=== PATIENT | female | born 1960 | race Caucasian/White ===

== ENCOUNTER 2022-01-13 16:17 | Inpatient (IN) | payer OTHER, SELFPAY ==
--- NOTE | ~2022-01-13 | XR_ITS ---
EXAMINATION: XR HAND, RIGHT CLINICAL INFORMATION: Right hand injury COMPARISON: None TECHNIQUE: PA, lateral, and oblique views of the right hand. FINDINGS: Bones are normal anatomic alignment with no acute fracture or dislocation. Degenerative changes are seen with osteophyte formation more so in the region of the AP and PIP joint spaces. No acute underlying fracture or dislocation appreciated. XR/XR hand RT 2V IMPRESSION: No acute bony abnormality with chronic appearing degenerative changes.
[2022-01-13 16:28] VITALS: BP 124/91; PULSE 69; RESP 18; TEMP 36.8; O2SAT 99; BMI 27.4
--- NOTE | 2022-01-13 17:25 | ED_ITS ---
HPI - Extremity Problem General Chief complaint: Extremity Injury, Upper Stated complaint: Cat Scratch R Hand Time Seen by Provider: 01/13/22 17:25 Source: patient Mode of arrival: ambulatory Limitations: no limitations History of Present Illness HPI Narrative: Patient is a 61 year old female presenting to the emergency department today with right hand pain. Patient states that on Thursday she was bitten and scratched by her cat and ever since then she has had significant swelling and pain to her right hand. Patient denies any numbness, tingling, dizziness, lightheadedness, abdominal pain, nausea, vomiting, fever, chills, blurry vision, double vision, loss of vision, chest pain, difficulty breathing, shortness of breath, back pain, night sweats, pain with urination, increased urinary frequency, increased urinary urgency, blood in her urine or stool, syncope or a near syncopal episode, bowel incontinence, bladder incontinence, bowel retention, bladder retention, or any other complaints at this time. MD Complaint: extremity pain and extremity swelling Onset (ago): day(s) (2) Pain Consistency: constant Location: right and upper extremity Severity scale (1-10): 5 Quality: dull Radiation: none Relieving factors: nothing Exacerbating factors: range of motion Associated symptoms: denies other symptoms Related Data Allergies Allergy/AdvReac Type Severity Reaction Status Date / Time No Known Allergies Allergy Verified 01/13/22 16:27 Review of Systems Constitutional: Constitutional: Reports no additional constitutional complaints, Denies chills, Denies fever(s) and Denies night sweats Eyes: Eyes: Reports no additional eye complaints, Denies blurry vision, Denies change in vision, Denies diplopia, Denies eye discharge, Denies loss of vision and Denies eye pain ENT: Denies dizziness Cardiovascular: Cardiovascular: Reports no additional cardiovascular complaints, Denies chest pain, Denies lightheadedness, Denies Loss of Consciousness and Denies dyspnea Respiratory: Respiratory: Reports no additional respiratory complaints and Denies dyspnea Gastrointestinal: Gastrointestinal: Reports no additional gastrointestinal complaints, Denies abdominal pain, Denies melena, Denies hematochezia, Denies change in bowel habits and Denies change in stool character Genitourinary: Genitourinary: Denies hematuria, Denies urinary frequency, Denies dysuria, Denies urinary incontinence, Denies urinary hesitancy and Denies urinary urgency Musculoskeletal: Musculoskeletal: Reports no additional musculoskeletal complaints, Denies numbness and Denies tingling Comments: swelling, redness, and pain to the right index and middle finger Neurologic: Denies dizziness, Denies loss of vision, Denies numbness and Denies tingling Psychiatric: Psychiatric: Reports no additional psychiatric complaints Endocrine: Endocrine: Reports no additional endocrine complaints Hematologic/Lymphatic: Hematologic/Lymphatic: Reports no additional hematologic/lymphatic complaints Allergic/Immunologic: Allergic/Immunologic: Reports no additional allergic/imm unologic complaints [facility] Past Medical History Attestation statement: The following information was validated with the patient. Source: old records reviewed Social History Social History Advance Directives: No Advance Directives Information Provided: No Patient : No Physical Exam Vital Signs: Vital Signs: Last Vital Signs Temp 98.3 F 01/13/22 16:28 Pulse 69 01/13/22 16:28 Resp 18 01/13/22 16:28 BP 124/91 H 01/13/22 16:28 Pulse Ox 99 01/13/22 16:28 BMI result Body Mass Index 27.4 Const: General: cooperative, no acute distress, alert and awake Nutritional Appearance: well nourished Orientation/consciousness: patient oriented x3 Limitations: no limitations HEENT: Head: Yes normal to inspection and Yes atraumatic Ears: hearing grossly normal bilaterally and external ears normal General nose exam: Normal external nose present, no nasal discharge noted and no epistaxis Face and sinus: Yes normal facial exam, No abrasion and No laceration Mouth: Normal oral and palatal mucosa present, no drooling and no muffled voice Eyes: General: appearance normal, both eyes and all related structures Periorbital: periorbital findings normal Eyelids: Yes eyelids normal Conjunctivae: conjunctivae normal Pupils: Equal, round and reactive pupils present EOM: EOMs intact bilaterally Neck: Neck: Yes normal visual inspection, Yes full ROM and Yes no lymphadenopathy Chest: Chest palpation & inspection: normal inspection of the chest Resp: Effort & Inspection: normal respiratory effort and able to speak in complete sentences Auscultation: clear to auscultation bilaterally Cardio: Rate: regular rate Rhythm: regular rhythm GI: Inspection: Yes normal to inspection Neuro: General: patient oriented x3 and moves all extremities Cranial nerves: Yes Equal, round and reactive pupils present Cognition (Neuro): normal cognition Motor exam (neuro): 5/5 motor strength present throughout Sensory Exam: Normal double simultaneous stimulation for sensation Coord ination: [id number] test normal Extrem: Other: erythema, warmth, and swelling present to the right index and middle fingers Patient has right index finger in relaxed flexed position and has significant pain with extension General: Yes capillary refill normal Psych: Appearance: grossly normal Mental Status: mental status grossly normal Affect: normal affect Attitude: cooperative Thought process: Normal thought process present Thought content: Normal thought content present Insight: Good insight present (Psych) MDM - Extremity (Nontraumatic) MDM Narrative Medical decision making narrative: Patient is a 61 year old female presenting to the emergency department today with right hand pain after a cat bite. Patient's physical exam showed significant redness, warmth, and swelling to the right index and middle fingers. Patient's right index finger was held in flexion with intense pain upon extension. Patient's blood work showed an elevated CRP but was otherwise normal. Patient's right hand x-ray is pending. Right hand cellulitis is present and I am concerned for flexor tenosynovitis. I spoke to Lisa albrecht orthopedic PA who recommended the patient be NPO and have an orthopedic consult in the morning. Patient was given IV Zosyn. I spoke to Dr. Calloway who agreed to hospital admission. I explained my physical exam findings as well as all test results to the patient. I answered all questions asked by the patient. Patient verbalized agreement and understanding with this treatment plan and admission. Differential Diagnosis Differential diagnosis: Likely cellulitis (flexor tenosynovitis) Medical Records Attestation: I reviewed the patient's medical records. Lab Data Attestation: I reviewed the patient's lab results. Result diagrams: 01/13/22 18:10 01/13/22 18:10 Labs: Lab Results 01/13/22 01/13/22 01/13/22 Range/Units 18:10 18:10 18:10 WBC 7.2 (4.8-10.8) X10*3/uL RBC 4.16 L (4.20-5.50) X10*6/uL Hgb 13.5 (12.0-16.0) g/dl Hct 39.3 (37.0-47.0) % MCV 94.5 (80.0-98.0) fL MCH 32.5 (27.0-33.0) pg MCHC 34.4 (31.0-35.0) g/dl RDW 12.1 (11.0-16.0) % Plt Count 277 (160-400) X10*3/uL MPV 8.8 L (9.4-12.3) fL Immature Gran % (Auto) 0.3 (0.0-0.4) % Neut % (Auto) 59.3 (45-73) % Lymph % (Auto) 31.1 (20-40) % Burt % (Auto) 8.2 (2-11) % Eos % (Auto) 0.7 (0-4) % Baso % (Auto) 0.4 (0-2) % Lymph # (Auto) 2.3 (1.2-4.9) X10*3/uL Burt # (Auto) 0.6 (0.1-1.2) X10*3/uL Eos # (Auto) 0.1 (0.0-0.4) X10*3/uL Baso # (Auto) 0.0 (0.0-0.2) X10*3/uL Abs Immat Gran (auto) 0.02 (0.00-0.03) X10*3/uL Absolute Neuts (auto) 4.3 (2.0-8.3) x10*3/uL Absolute Nucleated RBC 0.000 (0.0-0.012) X10*3/uL Nucleated RBC % (auto) 0.0 (0.0-0.2) /100WBC ESR 6 (0-20) MM/HR Sodium 139 (135-145) mmol/L Potassium 4.4 (3.3-5.1) mmol/L Chloride 105 (96-108) mmol/L Carbon Dioxide 25 (22-29) mmol/L Anion Gap 13 (12-20) BUN 12 (9-16) mg/dL Creatinine 0.71 (0.5-1.4) mg/dL Estim Creat Clear Calc 75.2 Estimated GFR > 60 Random Glucose 89 (60-115) mg/dL Lactic Acid (0.5-2.0) mmol/L Calcium 9.8 (8.4-10.2) mg/dL Total Bilirubin 1.4 H (0.0-1.0) mg/dL AST 20 (5-31) U/L ALT 22 (0-31) U/L Alkaline Phosphatase 90 (39-117) U/L C-Reactive Protein 1.61 H (< or = 0.50) mg/dL Total Protein 7.1 (6.5-8.0) g/dL Albumin 4.4 (3.5-5.0) g/dL 01/13/22 Range/Units 18:10 WBC (4.8-10.8) X10*3/uL RBC (4.20-5.50) X10*6/uL Hgb (12.0-16.0) g/dl Hct (37.0-47.0) % MCV (80.0-98.0) fL MCH (27.0-33.0) pg MCHC (31.0-35.0) g/dl RDW (11.0-16.0) % Plt Count (160-400) X10*3/uL MPV (9.4-12.3) fL Immature Gran % (Auto) (0.0-0.4) % Neut % (Auto) (45-73) % Lymph % (Auto) (20-40) % Burt % (Auto) (2-11) % Eos % (Auto) (0-4) % Baso % (Auto) (0-2) % Lymph # (Auto) (1.2-4.9) X10*3/uL Burt # (Auto) (0.1-1.2) X10*3/uL Eos # (Auto) (0.0-0.4) X10*3/uL Baso # (Auto) (0.0-0.2) X10*3/uL Abs Immat Gran (auto) (0.00-0.03) X10*3/uL Absolute Neuts (auto) (2.0-8.3) x10*3/uL Absolute Nucleated RBC (0.0-0.012) X10*3/uL Nucleated RBC % (auto) (0.0-0.2) /100WBC ESR (0-20) MM/HR Sodium (135-145) mmol/L Potassium (3.3-5.1) mmol/L Chloride (96-108) mmol/L Carbon Dioxide (22-29) mmol/L Anion Gap (12-20) BUN (9-16) mg/dL Creatinine (0.5-1.4) mg/dL Estim Creat Clear Calc Estimated GFR Random Glucose (60-115) mg/dL Lactic Acid 0.7 (0.5-2.0) mmol/L Calcium (8.4-10.2) mg/dL Total Bilirubin (0.0-1.0) mg/dL AST (5-31) U/L ALT (0-31) U/L Alkaline Phosphatase (39-117) U/L C-Reactive Protein (< or = 0.50) mg/dL Total Protein (6.5-8.0) g/dL Albumin (3.5-5.0) g/dL Critical Care Time Critical Care Time Critical Care Time: Yes Total Critical Care Time: 30 Attestation: I spent 30 minutes of Critical Care Time with this patient. This does not include time spent on separately reported billable procedures. Discharge Plan Discharge Clinical Impression: Cellulitis Patient Disposition: Admitted As Inpatient Print Language: Frisian
[2022-01-13 18:24] LABS: MANUAL DIFF FLAG NO
[2022-01-13 18:25] LABS: Basophils Percent Auto 0.4 % (0-2); Eosinophils Absolute Auto 0.1 X10*3/uL (0.0-0.4); Eosinophils Percent Auto 0.7 % (0-4); Hematocrit 39.3 % (37.0-47.0); Hemoglobin 13.5 g/dl (12.0-16.0); Imm Gran Abs Auto 0.02 X10*3/uL (0.00-0.03); Imm Gran Pct Auto 0.3 % (0.0-0.4); Lymphocytes Absolute Auto 2.3 X10*3/uL (1.2-4.9); Lymphocytes Percent Auto 31.1 % (20-40); Mean Corpuscular HGB Conc 34.4 g/dl (31.0-35.0); Mean Corpuscular Hemoglobin 32.5 pg (27.0-33.0); Mean Corpuscular Volume 94.5 fL (80.0-98.0); Mean Platelet Volume 8.8 fL (9.4-12.3); Monocytes Absolute Auto 0.6 X10*3/uL (0.1-1.2); Monocytes Percent Auto 8.2 % (2-11); Neutrophils Absolute Auto 4.3 x10*3/uL (2.0-8.3); Neutrophils Percent Auto 59.3 % (45-73); Platelet Count 277 X10*3/uL (160-400); Red Blood Count 4.16 X10*6/uL (4.20-5.50); Red Cell Distribution Width 12.1 % (11.0-16.0); White Blood Count 7.2 X10*3/uL (4.8-10.8)
[2022-01-13 18:38] LABS: Lactic Acid 0.7 mmol/L (0.5-2.0)
[2022-01-13 18:43] LABS: Alanine Aminotransferase 22 U/L (0-31); Albumin Level 4.4 g/dL (3.5-5.0); Alkaline Phosphatase 90 U/L (39-117); Anion Gap 13 (12-20); Aspartate Amino Transferase 20 U/L (5-31); Bilirubin Total 1.4 mg/dL (0.0-1.0); Blood Urea Nitrogen 12 mg/dL (9-16); C Reactive Protein 1.61 mg/dL (< or = 0.50); Calcium 9.8 mg/dL (8.4-10.2); Carbon Dioxide 25 mmol/L (22-29); Chloride 105 mmol/L (96-108); Creatinine Clr Calc Pharmacy 75.2; Estimated Glomerular Filt Rate > 60; Glucose Random 89 mg/dL (60-115); Potassium 4.4 mmol/L (3.3-5.1); Sodium 139 mmol/L (135-145); Total Protein 7.1 g/dL (6.5-8.0)
[2022-01-13] MEDS: Piperacillin Sodium/Tazobactam 4.5 GM in 0.9 % Sodium Chloride 100 ML IV (19:07)
[2022-01-13 19:13] LABS: Erythrocyte Sedimentation Rate 6 MM/HR (0-20)
--- NOTE | 2022-01-13 19:43 | PM.IMHP ---
History of Present Illness Date of Service: 01/13/22 Chief Complaint: Right hand pain redness and swelling 61-year-old female with no significant past medical history presents to the hospital today with a chief complaint of right hand pain redness and swelling. Patient reports that couple days ago she had her cat scratched on the hand; denies any ulcers or bite; later started of redness and swelling which has gradually worsened since last Thursday; denies any fevers and chills. Denies any nausea vomiting diarrhea. Denies any chest pain or palpitations. Denies any GI symptoms. Review of all other systems is negative except mentioned above ER course: Per ER team patient noted to have right index finger pain redness and tenderness; was initially unable to extend the fingers or flex the fingers; concern for tenosynovitis; given Zosyn. Spoke to Orthopedics who suggested admission to the medicine service [facility] Pertinent family history: Brother has Hodgkin's lymphoma Mother has Alzheimer's dementia Social History Household Members: Spouse Housing: House Do you presently have visiting nurse or other home services: No Patient Tobacco Use Status: Never used Tobacco Use of substances other than those prescribed or required for medical reasons: No Have you been hit, kicked, punched, or otherwise hurt by someone within the past year? If so, by whom?: No Do you feel safe in your current relationship?: Yes Is there a partner from a previous relationship who is making you feel unsafe now?: No Are you made to feel afraid or neglected: No Advance Directives: No Advance Directives Information Provided: No Do you have thoughts of harming others: None Do you have a plan to hurt others: No Plan Recently lost weight without trying: No Nutrition Risks: No Nutritional Risk Patient : No service: No Current occupational status: employed Meds Allergies Allergy/AdvReac Type Severity Reaction Status Date / Time No Known Allergies Allergy Verified 01/13/22 16:27 Active Medications: Current Medications Acetaminophen (Acetaminophen 325 Mg Tablet) 650 mg PO Q6H PRN PRN Reason: Pain, Mild (Pain Scale 1-3) Enoxaparin Sodium (Enoxaparin Sodium 40 Mg/0.4 Ml Syringe) 40 mg SUBCUT Q24H [facility] Piperacillin Sod/Tazobactam (Sod 3.375 gm/ Sodium Chloride) 50 mls @ 100 mls/hr IV Q6H [facility] Ketorolac Tromethamine (Ketorolac Tromethamine 30 Mg/Ml Vial) 15 mg IVPUSH Q6H PRN PRN Reason: Pain, Moderate (Pain Scale 4-6 Stop: 01/18/22 19:36 Melatonin (Melatonin 3 Mg Tablet) 6 mg PO BEDTIME PRN PRN Reason: Insomnia Pharmacy Consult (Consult Rx Perform Med Rec) 1 each MISCELLANE ONCE PRN PRN Reason: Consult order Senna (Sennosides 8.6 Mg Tablet) 17.2 mg PO BEDTIME PRN PRN Reason: Constipation Sodium Chloride (0.9 % Sodium Chloride Flush 3 Ml Syringe) 3 ml IVFLUSH QSHIFT [facility] Home Medications Medication Instructions Recorded Confirmed Last Taken Type brimonidine 0.2 % eye drops 1 drp OPHTHALMIC (EYE) BID 01/13/22 01/13/22 01/13/22 History fluticasone propionate 50 1 spray INTRANASAL DAILY PRN 01/13/22 01/13/22 Unknown History mcg/actuation nasal spray,suspension Physical Exam Vital Signs and Narrative: Vital Signs: Last Vital Signs Temp 98.3 F 01/13/22 16:28 Pulse 69 01/13/22 16:28 Resp 18 01/13/22 16:28 BP 124/91 H 01/13/22 16:28 Pulse Ox 99 01/13/22 16:28 BMI result Body Mass Index 27.4 Gen: Appears be in no acute distress HEENT: NCAT, Moist mucosa. Pulmonary: Vesicular breath sounds, fair air entry CVS: Normal S1-S2 Abdomen: BS+, Soft, Nontender Extremities: Warm well perfused; able to flex and extend the right index finger mildly; noted to have erythema, tenderness, warmth on the right index and middle finger. Slightly extending into the distal 3rd of the dorsum of the hand. Neuro: Alert and awake. Results Labs CBC and Chem 7: 01/13/22 18:10 01/13/22 18:10 Labs: Laboratory Results - last 24 hr 01/13/22 01/13/22 01/13/22 18:10 18:10 18:10 MCV 94.5 MCH 32.5 MCHC 34.4 RDW 12.1 Plt Count 277 MPV 8.8 L Immature Gran % (Auto) 0.3 Neut % (Auto) 59.3 Lymph % (Auto) 31.1 Mckenzie % (Auto) 8.2 Eos % (Auto) 0.7 Baso % (Auto) 0.4 Lymph # (Auto) 2.3 Mckenzie # (Auto) 0.6 Eos # (Auto) 0.1 Baso # (Auto) 0.0 Abs Immat Gran (auto) 0.02 Absolute Neuts (auto) 4.3 Absolute Nucleated RBC 0.000 Nucleated RBC % (auto) 0.0 ESR 6 Anion Gap 13 Estim Creat Clear Calc 75.2 Estimated GFR > 60 Random Glucose 89 Lactic Acid Calcium 9.8 Total Bilirubin 1.4 H AST 20 ALT 22 Alkaline Phosphatase 90 C-Reactive Protein 1.61 H Total Protein 7.1 Albumin 4.4 01/13/22 18:10 MCV MCH MCHC RDW Plt Count MPV Immature Gran % (Auto) Neut % (Auto) Lymph % (Auto) Mckenzie % (Auto) Eos % (Auto) Baso % (Auto) Lymph # (Auto) Mckenzie # (Auto) Eos # (Auto) Baso # (Auto) Abs Immat Gran (auto) Absolute Neuts (auto) Absolute Nucleated RBC Nucleated RBC % (auto) ESR Anion Gap Estim Creat Clear Calc Estimated GFR Random Glucose Lactic Acid 0.7 Calcium Total Bilirubin AST ALT Alkaline Phosphatase C-Reactive Protein Total Protein Albumin Assessment and Plan Plan 61-year-old female with no significant past medical history presented to the hospital with a chief complaint of right index finger cat scratch; followed by daughter pain, redness, swelling, decreased range of motion; findings consistent cellulitis; concern tenosynovitis. Admitted for further management. Right index finger cellulitis/cat scratch/? Tenosynovitis: Patient able to mildly flex and extend the index and middle fingers. Continue Zosyn Id consult Orthopedics was notified. Pain control DVT prophylaxis: Lovenox Code status: Full code Quality Stroke Does the patient have a stroke diagnosis?: No VTE Prior VTE?: No VTE Risk Level:: Medical - moderate - high VTE Device Contraindication: Treatment Not Indicated VTE Drug Contraindication: N/A - Med Ordered
--- NOTE | 2022-01-13 19:46 | PHA.MEDREC ---
Pharmacy Consult ? Medication Reconciliation Pharmacy has completed the medication reconciliation.
--- NOTE | 2022-01-13 20:24 | MHC.CM.PN ---
CM met with admitted patient with bed assignment pending. A&Ox3. Declines HCP/ No PCP. Fully vaxx x2/boosted x1/Moderna. Lives with . No DME/services/ Works communications department head. Just adopted the cat that bit/scratched her. D/C plan is home without services. Pt educated that if IV antibiotics are needed for extended period of time, that can be done at home. Pt aware that ortho will see patient in the morning. will transport home. CM to follow for d/c needs.
[2022-01-13 21:52] VITALS: BP 151/77; PULSE 58; RESP 20; TEMP 36.7; O2SAT 97
[2022-01-13 22:19] LABS: COVID-19 Test Negative (Negative); IDNOW Serial# 16C4AD1C
[2022-01-13 22:25] VITALS: BMI 28.9
[2022-01-13 22:28] VITALS: BP 141/76; PULSE 62; RESP 17; TEMP 36.1; O2SAT 97
[2022-01-13] MEDS: 0.9 % Sodium Chloride Flush 3 ML SYRINGE IVFLUSH (22:37)
[2022-01-14] VITALS: BP 132/73; PULSE 51; RESP 18; TEMP 36.2; O2SAT 98
[2022-01-14] MEDS: Piperacillin Sodium/Tazobactam 3.375 GM in 0.9 % Sodium Chloride 50 ML IV ×2 (01:15→06:44)
[2022-01-14 03:45] VITALS: BP 146/72; PULSE 50; RESP 18; TEMP 36.2; O2SAT 98
[2022-01-14] MEDS: 0.9 % Sodium Chloride Flush 3 ML SYRINGE IVFLUSH (06:44)
[2022-01-14 07:03] VITALS: BP 147/72; PULSE 54; RESP 18; TEMP 35.9; O2SAT 99
[2022-01-14 07:08] LABS: MANUAL DIFF FLAG NO
[2022-01-14 07:12] LABS: Basophils Percent Auto 0.6 % (0-2); Eosinophils Absolute Auto 0.1 X10*3/uL (0.0-0.4); Eosinophils Percent Auto 1.6 % (0-4); Hematocrit 42.4 % (37.0-47.0); Hemoglobin 14.3 g/dl (12.0-16.0); Imm Gran Abs Auto 0.01 X10*3/uL (0.00-0.03); Imm Gran Pct Auto 0.2 % (0.0-0.4); Lymphocytes Absolute Auto 2.5 X10*3/uL (1.2-4.9); Mean Corpuscular HGB Conc 33.7 g/dl (31.0-35.0); Mean Corpuscular Hemoglobin 32.4 pg (27.0-33.0); Mean Corpuscular Volume 96.1 fL (80.0-98.0); Mean Platelet Volume 8.8 fL (9.4-12.3); Monocytes Absolute Auto 0.6 X10*3/uL (0.1-1.2); Monocytes Percent Auto 9.9 % (2-11); Neutrophils Absolute Auto 2.9 x10*3/uL (2.0-8.3); Neutrophils Percent Auto 47.7 % (45-73); Platelet Count 291 X10*3/uL (160-400); Red Blood Count 4.41 X10*6/uL (4.20-5.50); Red Cell Distribution Width 12.1 % (11.0-16.0); White Blood Count 6.2 X10*3/uL (4.8-10.8)
--- NOTE | 2022-01-14 07:27 | PM.CNOR ---
History of Present Illness HPI Consult date: 01/14/22 Chief complaint: Cellulitis Narrative: Patient presented to the emergency department yesterday after being scratched by her newly adopted cat this past Thursday01/11/22. She developed excessive redness and increased pain prompting her to go to the walk-in clinic. The walk-in clinic they recommended she present to the ED for further evaluation and treatment. The patient was started on IV antibiotics and admitted to the medicine service with orthopedic consult. Review of Systems Review of Systems: Yes all other systems are reviewed and are negative [facility] Social History Social History Household Members: Spouse Housing: House Do you presently have visiting nurse or other home services: No Patient Tobacco Use Status: Never used Tobacco Use of substances other than those prescribed or required for medical reasons: No Currently Displaying Signs/Symptoms of Drug Intoxication Withdrawal: No Have you been hit, kicked, punched, or otherwise hurt by someone within the past year? If so, by whom?: No Do you feel safe in your current relationship?: Yes Is there a partner from a previous relationship who is making you feel unsafe now?: No Are you made to feel afraid or neglected: No Advance Directives: No Advance Directives Information Provided: No Do you have thoughts of harming others: None Do you have a plan to hurt others: No Plan Recently lost weight without trying: No Nutrition Risks: No Nutritional Risk Patient : No service: No Current occupational status: employed Meds Allergies Allergy/AdvReac Type Severity Reaction Status Date / Time No Known Allergies Allergy Verified 01/13/22 16:27 Active Medications: Current Medications Acetaminophen (Acetaminophen 325 Mg Tablet) 650 mg PO Q6H PRN PRN Reason: Pain, Mild (Pain Scale 1-3) Enoxaparin Sodium (Enoxaparin Sodium 40 Mg/0.4 Ml Syringe) 40 mg SUBCUT Q24H [facility] Last Admin: 01/13/22 20:53 Dose: Not Given Documented by: Piperacillin Sod/Tazobactam (Sod 3.375 gm/ Sodium Chloride) 50 mls @ 100 mls/hr IV Q6H [facility] Last Admin: 01/14/22 06:44 Dose: 100 mls/hr Documented by: Ketorolac Tromethamine (Ketorolac Tromethamine 15 Mg/Ml Vial) 15 mg IVPUSH Q6H PRN PRN Reason: Pain, Moderate (Pain Scale 4-6 Stop: 01/18/22 19:49 Melatonin (Melatonin 3 Mg Tablet) 6 mg PO BEDTIME PRN PRN Reason: Insomnia Pharmacy Consult (Consult Rx Perform Med Rec) 1 each MISCELLANE ONCE PRN PRN Reason: Consult order Senna (Sennosides 8.6 Mg Tablet) 17.2 mg PO BEDTIME PRN PRN Reason: Constipation Sodium Chloride (0.9 % Sodium Chloride Flush 3 Ml Syringe) [facility] Admin: 01/14/22 06:44 Dose: 3 ml Documented by: Home Medications Medication Instructions Recorded Confirmed Last Taken Type brimonidine 0.2 % eye drops 1 drp OPHTHALMIC (EYE) BID 01/13/22 01/13/22 01/13/22 History fluticasone propionate 50 1 spray INTRANASAL DAILY PRN 01/13/22 01/13/22 Unknown History mcg/actuation nasal spray,suspension Physical Exam Vital Signs: Vital Signs: Last Vital Signs Temp 96.7 F L 01/14/22 07:03 Pulse 54 01/14/22 07:03 Resp 18 01/14/22 07:03 BP 147/72 H 01/14/22 07:03 Pulse Ox 99 01/14/22 07:03 BMI result Body Mass Index 28.9 Const: General: cooperative and no acute distress Orientation/consciousness: patient oriented x3 Resp: Effort & Inspection: normal respiratory effort and able to speak in complete sentences Cardio: Peripheral pulses: Peripheral pulses 2+ throughout Skin: General skin exam: no rashes or lesions noted Neuro: General: patient oriented x3 Extrem: Other: Right hand erythema along the dorsal aspect of the hand over the 1st 2nd and 3rd metacarpals. Small superficial abrasion noted along the radial aspect of the index finger just distal to the thenar space. Small puncture wound to the ulnar aspect of the index finger and radial aspect of the middle finger just before the webspace. Patient is able to demonstrate full finger extension, abduction and adduction. Patient is lacking about 2 cm from the him closed fist with the index and middle fingers. No pain with axial loading of digits 1 through 3. No abscess noted or palpated on exam. Sensation is intact. Capillary refill is brisk. Results Labs Result Diagrams: 01/14/22 06:55 01/14/22 06:55 Labs: Abnormal lab results 01/13/22 01/13/22 01/14/22 Range/Units 18:10 18:10 06:55 RBC 4.16 L (4.20-5.50) X10*6/uL MPV 8.8 L 8.8 L (9.4-12.3) fL Total Bilirubin 1.4 H (0.0-1.0) mg/dL C-Reactive Protein 1.61 H (< or = 0.50) mg/dL H & H 01/13/22 01/14/22 Range/Units 18:10 06:55 Hgb 13.5 14.3 (12.0-16.0) g/dl Hct 39.3 42.4 (37.0-47.0) % All other labs normal. Assessment and Plan (1) Cellulitis: Status: Acute Plan Ms. Henderson is a 61-year-old [id number] female who presented to the emergency department yesterday after noticing an increase in her right hand erythema and edema. She reports that on Thursday01/11/2022 the patient was scratched by her newly adopted CT. The following days she noticed increase in pain in the right hand as well as erythema and edema. She presented to the walk-in clinic for evaluation in which they recommended emergency Department follow-up. Once evaluated in the emergency department the patient was admitted to the medicine service and begun IV antibiotics. Orthopedics was then consulted. Upon examination today the patient has erythema appears to be improving. Her range of motion is improving as well. Minimal pain. No evidence of tenosynovitis. X-rays obtained in the emergency department are available for my review are negative for any acute fracture or dislocation. Patient should continue IV antibiotics. No additional orthopedic intervention needed at this time but will continue to follow with the medicine team. Procedures Date of Service Date of Service: 01/14/22
[2022-01-14 07:28] LABS: Anion Gap 14 (12-20); Blood Urea Nitrogen 12 mg/dL (9-16); Calcium 9.6 mg/dL (8.4-10.2); Carbon Dioxide 27 mmol/L (22-29); Chloride 104 mmol/L (96-108); Creatinine Clr Calc Pharmacy 72.1; Estimated Glomerular Filt Rate > 60; Glucose Random 94 mg/dL (60-115); Potassium 4.5 mmol/L (3.3-5.1); Sodium 140 mmol/L (135-145)
[2022-01-14 11:04] VITALS: BP 119/68; PULSE 64; RESP 20; TEMP 36; O2SAT 98
--- NOTE | 2022-01-14 13:20 | P.DS_ITS ---
DS: Providers Provider Date of Service: 01/14/22 Date of admission: 01/13/22 19:27 Primary care physician: None Physician Consults: 01/13/22 19:40 Consult to Orthopedics Routine Consulting Provider: Axel White Reason for consultation: index finger cellulitis; ?tenosinuvitis 01/13/22 19:41 Consult to Infectious Diseases Routine Consulting Provider: Rosie Jackson Reason for consultation: cat scratch; cellulitis DS: Diagnosis Discharge Diagnosis (1) Cellulitis: Status: Acute DS: Summary Hospital Course Hospital Course: Patient was admitted due to cellulitis associated with a cat scratch from a cat that she has recently adopted. She was admitted and given IV antibiotics was seen by Orthopedic surgery with no indication for surgery. By the following morning the hand swelling room and redness has significantly improved with full range of motion, was evaluated by Infectious Disease and recommended to transition to oral Augmentin for discharge discharge. her recurring has impr sridhar much quicker than expected and therefore will be discharged home today. Time Spent with Patient Time attestation: Total time spent providing and/or coordinating discharge services: Discharge coordination time: Greater than 30 minutes Quality: Safe Use of Opioids Does Pt have an Active Cancer Diagnosis on the Problem List?: No Quality: Stroke Does the patient have a stroke diagnosis?: No Physical Exam Vital Signs: Vital Signs: Last Vital Signs Temp 96.8 F 01/14/22 11:04 Pulse 64 01/14/22 11:04 Resp 20 01/14/22 11:04 BP 119/68 01/14/22 11:04 Pulse Ox 98 01/14/22 11:04 BMI result Body Mass Index 28.9 DS: Data Data Completed and Pending Labs on day of discharge: Laboratory Results - last 24 hr 01/13/22 01/13/22 01/13/22 18:10 18:10 18:10 WBC 7.2 RBC 4.16 L Hgb 13.5 Hct 39.3 MCV 94.5 MCH 32.5 MCHC 34.4 RDW 12.1 Plt Count 277 MPV 8.8 L Immature Gran % (Auto) 0.3 Neut % (Auto) 59.3 Lymph % (Auto) 31.1 [place] % (Auto) 8.2 Eos % (Auto) 0.7 Baso % (Auto) 0.4 Lymph # (Auto) 2.3 [place] # (Auto) 0.6 Eos # (Auto) 0.1 Baso # (Auto) 0.0 Abs Immat Gran (auto) 0.02 Absolute Neuts (auto) 4.3 Absolute Nucleated RBC 0.000 Nucleated RBC % (auto) 0.0 ESR 6 Sodium 139 Potassium 4.4 Chloride 105 Carbon Dioxide 25 Anion Gap 13 BUN 12 Creatinine 0.71 Estim Creat Clear Calc 75.2 Estimated GFR > 60 Random Glucose 89 Lactic Acid Calcium 9.8 Total Bilirubin 1.4 H AST 20 ALT 22 Alkaline Phosphatase 90 C-Reactive Protein 1.61 H Total Protein 7.1 Albumin 4.4 COVID-19 ([facility]) COVID-19 Clin Com 01/13/22 01/13/22 01/14/22 18:10 21:52 06:55 WBC 6.2 RBC 4.41 Hgb 14.3 Hct 42.4 MCV 96.1 MCH 32.4 MCHC 33.7 RDW 12.1 Plt Count 291 MPV 8.8 L Immature Gran % (Auto) 0.2 Neut % (Auto) 47.7 Lymph % (Auto) 40.0 [place] % (Auto) 9.9 Eos % (Auto) 1.6 Baso % (Auto) 0.6 Lymph # (Auto) 2.5 [place] # (Auto) 0.6 Eos # (Auto) 0.1 Baso # (Auto) 0.0 Abs Immat Gran (auto) 0.01 Absolute Neuts (auto) 2.9 Absolute Nucleated RBC 0.000 Nucleated RBC % (auto) 0.0 ESR Sodium Potassium Chloride Carbon Dioxide Anion Gap BUN Creatinine Estim Creat Clear Calc Estimated GFR Random Glucose Lactic Acid 0.7 Calcium Total Bilirubin AST ALT Alkaline Phosphatase C-Reactive Protein Total Protein Albumin COVID-19 ([facility]RE[facility]) Negative COVID-19 Clin Com See Note 01/14/22 06:55 WBC RBC Hgb Hct MCV MCH MCHC RDW Plt Count MPV Immature Gran % (Auto) Neut % (Auto) Lymph % (Auto) [place] % (Auto) Eos % (Auto) Baso % (Auto) Lymph # (Auto) [place] # (Auto) Eos # (Auto) Baso # (Auto) Abs Immat Gran (auto) Absolute Neuts (auto) Absolute Nucleated RBC Nucleated RBC % (auto) ESR Sodium 140 Potassium 4.5 Chloride 104 Carbon Dioxide 27 Anion Gap 14 BUN 12 Creatinine 0.76 Estim Creat Clear Calc 72.1 Estimated GFR > 60 Random Glucose 94 Lactic Acid Calcium 9.6 Total Bilirubin AST ALT Alkaline Phosphatase C-Reactive Protein Total Protein Albumin COVID-19 ([facility]LA) COVID-19 Clin [facility] Discharge Plan Discharge Anticipated Discharge Date/Time: 01/14/22 13:16 Patient Disposition: Home, Self-Care Discharge Diagnosis: Cat scratch cellulitis Referrals: Physician,None [Primary Care Provider] - 1 Week Discharge Medications: New amoxicillin-pot clavulanate 875-125 mg tablet 1 tab PO Q12H Qty: 14 0RF Continued brimonidine 0.2 % drops 1 drp ophthalmic (eye) BID 0RF fluticasone propionate 50 mcg/actuation spray,suspension 1 spray intranasal DAILY PRN (Reason: Allergy Symptoms) 0RF Discharge Orders: Discharge Order (Routine); Ordered 01/14/22 Ordered By: Mayur Banks Diet: advance to usual diet Activity on Discharge: As tolerated Stand Alone Forms: Patient Portal Discharge page Print Language: Welsh Care Plan Goals: full recovery from a cat bite and cellulitis associated with Health Concerns: CaT by cellulitis Plan of Treatment: take Augmentin as recommended and follow up with her primary care physician within a week, call for appointment. If your symptoms get worse with increasing swelling in the hand fever chills please return to the emergency room. Assessment: as above
--- NOTE | 2022-01-14 15:31 | MHC.CM.PN ---
Patient discharged to home today. Family provided transportation. No home services ordered.
== END 2022-01-14 14:20 | disposition home or self-care (01) | DRG 603 ==
LOC: HO.ED 19:43 → HO.EDOVER 19:53 → HO.IMC 21:54
PROVIDERS: Physician Assistant Medical; Admitting Provider Hospitalist; Emergency Provider Internal Medicine; Visit Provider Internal Medicine
DX: L03.113 Cellulitis of right upper limb (principal); Z20.822 Contact with and (suspected) exposure to COVID-19; Z79.51 Long term (current) use of inhaled steroids; Z79.899 Other long term (current) drug therapy
CPT/HCPCS: 36415; 73120; 80048; 80053; 83605; 85025; 85652; 86140; 87040; 87635; 96365; 99285; J2543